=== PATIENT | male | born 1960 | race Caucasian/White ===

== ENCOUNTER 2017-06-06 12:20 | Inpatient (IN) | payer OTHER ==
[~2017-06-06] VITALS: Ht 188 cm; Wt 115.9 kg
--- NOTE | ~2017-06-06 | 2DMMODE ---
[facility] [address] [place] [address] 2 D/M-MODE ECHOCARDIOGRAM Name: LAYLA MARTINS Room #: 215-P ADM IN M.R.#: [id number] Admission: 06/06/17 Attend Phys: José Antonio Hobbs MD Discharge: Date of : 62 Date of Service: 06/07/17 1149 Report #: [id number] THIS REPORT FOR: //name// APPROVED REPORT Study performed: 06/07/2017 10:47:24 EXAM: Comprehensive 2D, Doppler, and color-flow Echocardiogram Patient Location: Bedside Room #: 215 Status: routine BSA: 2.41 HR: 60 bpm BP: 127/85 mmHg Rhythm: NSR Other Information Study Quality: Adequate Technically limited study due to body habitus, unable to position. S/P heart cath. Indications SVT, ST depression, elevated troponin. 2D Dimensions RVDd: 35.51 mm LVEF(%): 49.13 (>50%) IVSd: 13.59 (7-11mm) LVOT Diam: 24.09 (18-24mm) LVDd: 46.95 mm PWd: 13.59 (7-11mm) LVDs: 35.31 (25-40mm) Aortic Root: 42.57 mm Magana's LVEF: 49.13 % Volumes Left Atrial Volume (Systole) Single Plane 4CH: 44.42 mL Single Plane 2CH: 47.72 mL LA ESV Index: 24.00 mL/m2 Aortic Valve AoV Peak Ramon.: 0.84 m/s AO Peak Gr.: 2.79 mmHg LVOT Max P.85 mmHg LVOT Max V: 0.68 m/s BEAU Vmax: 3.71 cm2 Mitral Valve [facility] [address] [place] [address] 2 D/M-MODE ECHOCARDIOGRAM Name: [facility] Room #: 215-[facility] IN .R.#: [id number] Admission: 06/06/17 Attend Phys: José Antonio Hobbs MD Discharge: Date of : 62 Date of Service: 06/07/17 1149 Report #: [id number] E/A Ratio: 0.7 MV Decel. Time: 363.02 ms MV E Max Ramon.: 0.47 m/s MV A Ramon.: 0.64 m/s MV PHT: 105.28 ms IVRT: 110.73 ms Pulmonary Valve PV Peak Ramon.: 0.84 m/s PV Peak Gr.: 2.79 mmHg Pulmonary Vein P Vein S: 0.32 m/s P Vein D: 0.24 m/s P Vein S/D Ratio: 1.33 Left Ventricle The left ventricle is normal size. Mild concentric left ventricular hypertrophy. Left ventricular systolic function is normal. LVEF is 50-55%. Mild diastolic dysfunction is present (impaired relaxation pattern). Right Ventricle The right ventricle is normal size. The right ventricular systolic function is normal. Atria The left atrium size is normal. The right atrium size is normal. Aortic Valve The aortic valve is normal in structure. No aortic regurgitation is present. There is no aortic valvular stenosis. Mitral Valve The mitral valve is normal in structure. There is no mitral valve regurgitation noted. No evidence of mitral valve stenosis. Tricuspid Valve The tricuspid valve is normal in structure. There is no tricuspid valve regurgitation noted. Unable to assess PA pressure. Pulmonic Valve Pulmonic valve is not well visualized. Great Vessels Ascending aorta is not well visualized. IVC is not well [facility] [address] [place] [address] 2 D/M-MODE ECHOCARDIOGRAM Name: [facility] Room #: 215-P [facility] IN M.R.#: [id number] Admission: 06/06/17 Attend Phys: José Antonio Hobbs MD Discharge: Date of : 62 Date of Service: 06/07/17 1149 Report #: [id number] visualized. Pericardium There is no pericardial effusion. <Conclusion> The left ventricle is normal size. Mild concentric left ventricular hypertrophy. Left ventricular systolic function is normal. Mild diastolic dysfunction is present (impaired relaxation pattern). The right ventricle is normal size. The left atrium size is normal. There is no aortic valvular stenosis. There is no mitral valve regurgitation noted. <ELECTRONICALLY SIGNED> By: Rao Torres MD 06/07/17 1149 1149 1149 Rao Torres MD /INF
--- NOTE | ~2017-06-06 | EKG ---
[address] [place] [place] [address] ELECTROCARDIOGRAM REPORT Name: LAYLA MARTINS Room #: 215-P ADM IN M.R.#: [id number] Admission: 06/06/17 Attend Phys: José Antonio Hobbs MD Discharge: Date of : 62 Report #: [id number] THIS REPORT FOR: //name// [facility] Test Date: 2017-06-07 Test Time: 05:37:25 Pat Name: LAYLA MARTINS Department: Room: 215 P Gender: M International Sales Manager: FRANCHESKA : 1960 Requested By: Leola Valero Order Number: [id number] MD: Graham Barry Measurements Intervals Castaner Rate: 67 P: 23 FL: 203 QRS: -18 QRSD: 107 T: 7 QT: 475 QTc: 502 Interpretive Statements Sinus rhythm Borderline prolonged FL interval Borderline left axis deviation Early R-wave progression Prolonged QT interval Baseline wander in lead(s) V4,V6 No previous ECG available for comparison Electronically Signed On 06-07-2017 7:49:44 CDT by Graham Barry [email or web address] <ELECTRONICALLY SIGNED> By: Graham Barry MD, [facility] 06/07/17 0749 0537 0537 Graham Barry MD, [facility] /EPI
--- NOTE | ~2017-06-06 | CATHLAB ---
[facility] [address] [place] [address] INVASIVE PROCEDURE REPORT Name: LAYLA MARTINS Room #: 215-P ADM IN M.R.#: [id number] Admission: 06/06/17 Attend Phys: José Antonio Hobbs MD Discharge: Date of : 62 Date of Service: 06/07/17 0932 Report #: [id number] THIS REPORT FOR: //name// APPROVED REPORT Study performed: 06/07/2017 07:32:59 Patient Details Patient Status: In-Patient Room #: The patient is a 56 year-old male Event Personnel Rao Torres Watch Assembler, Sandra Rebolledo RTR, Cole Alvarez Amber Monitor, Ricardo Santizo fire extinguisher inspector Performed Art Access - R femoral artery* Left Heart Cath w/or w/o Coronaries [id number] [facility] [id number] Initial Mod Sed Same Phys/QHP Gr5y [id number] Hemostasis with Manual pressure Indication Arrhythmia, Dyspnea, Chest pain Risk Factors Hypercholesterolemia, Hypertension Procedure Narrative The patient was brought urgently to the Cardiac Catheterization Laboratory and was prepped and draped in a sterile manner. The Right Groin^ was infiltrated with 1% Lidocaine subcutaneous anesthesia. A PINNACLE 4FR Sheath #[id number] sheath was inserted into the RFA^. Coronary angiography was performed using coronary diagnostic catheters. The right coronary system was accessed and visualized with a JR 4 catheter. The left coronary system was accessed and visualized with a JL 5 catheter. The left ventricle was accessed and visualized with a Pigtail catheter. Left ventricular/Aortic Valve gradient assessed via catheter pullback. Left ventriculogram was performed in BECERRIL projection. Hemostasis was obtained with manual pressure following sheath removal without any complications. The patient tolerated the procedure well and there were no complications associated with the procedure. There was no hematoma. Intraoperative Conscious Sedation Sedation start time: 08:23 Case end Time: 08:43 [facility] [place] [address] INVASIVE PROCEDURE REPORT Name: [facility] Room #: 215-P [facility] IN M.R.#: [id number] Admission: 06/06/17 Attend Phys: José Antonio Hobbs MD Discharge: Date of : 62 Date of Service: 06/07/17 0932 Report #: [id number] Fentanyl 50 mcg Versed 1.5 mg Fluoro Time: 4.36 minutes Dose: DAP 7502.10 cGycm2 784 mGy Contrast Type and Amount: Omnipaque 100 ml Coronary Angiography The patient's coronary anatomy is right dominant. Diagnostic Cath Left Main Large-caliber vessel, with no flow-limiting lesions. LAD Large-caliber vessel, with mild ectatic areas in the proximal segment. Within the mid segment of LAD, there is mild disease, less than 20%. Diagonal 1 Patent vessel, no flow-limiting lesions. Circumflex Moderate to large caliber vessel, with no flow-limiting lesions. Supplies 2 moderate-sized obtuse marginal arteries. OM1 Patent vessel, with no flow-limiting lesions. OM2 Patent vessel, with no flow-limiting lesions. Right Coronary Moderate size caliber vessel, with mild disease in the mid segment, less than 20%. R PDA Small-caliber vessel, with no flow-limiting lesions. RPLV Small-caliber vessel, with no flow-limiting lesions. Left Ventriculography The left ventricle is normal in size with normal contractility. The left ventricular ejection fraction is estimated to be 50-55%. Mitral valve prolapse is identified. Hemodynamics The aortic pressure is 126/79 mmHg with a mean of 101 mmHg. The left ventricular pressure is 121/6 mmHg with a mean of mmHg. The left ventricular end diastolic pressure is 17 mmHg. Conclusion 1. 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 2. Normal LV systolic function. 3. Recommend risk factor management. <ELECTRONICALLY SIGNED> By: Rao Torres MD 06/07/1732 1 1 Rao Torres MD /INF
[2017-06-06 13:30] VITALS: BP 116/82
[2017-06-06 15:16] LABS: CALCIUM 9.5 mg/dL (8.5-10.1); CREATININE 1.3 mg/dL (0.7-1.3); POTASSIUM 4.5 mmol/L (3.5-5.1)
[2017-06-06] MEDS ORDERED: LIPITOR10 MG PO (15:37)
[2017-06-06] MEDS ORDERED: HYDROCHLOROTH12.5 M1 PO (15:38)
[2017-06-06] MEDS ORDERED: LISINOPRIL20 MG PO (15:39)
[2017-06-06] MEDS ORDERED: LOPRESSOR50 PO (15:39)
[2017-06-06] MEDS ORDERED: DROXIA400 MG PO (15:47)
[2017-06-06 16:00] VITALS: BP 119/81
[2017-06-06 20:07] VITALS: BP 146/96
[2017-06-06 23:03] VITALS: BP 132/82
[2017-06-07] VITALS (15 sets, daily range): BP systolic 122–148; BP diastolic 76–96
[2017-06-07 04:22] LABS: ABSOLUTE NEUTROPHILS 6.4 thou/uL (1.4-8.2); BASOPHILS 0.9 % (0.0-2.0); EOSINOPHILS 6.2 % (0.0-3.0); HEMATOCRIT 50.6 % (42.0-52.0); HEMOGLOBIN 17.4 gm/dL (14.0-18.0); LYMPHOCYTES 24.6 % (24.0-44.0); MCH 32.2 pg (26.0-34.0); MCHC 34.4 g/dL (28.0-37.0); MCV 93.7 fL (80.0-100.0); MONOCYTES 6.3 % (1.0-8.0); PLATELET COUNT 606 thou/uL (150-400); RBC 5.41 mil/uL (4.50-6.00); RDW 14.1 % (10.5-14.5); WBC 10.3 thou/uL (4.0-11.0)
[2017-06-07 04:31] LABS: CALCIUM 9.2 mg/dL (8.5-10.1); CREATININE 1.2 mg/dL (0.7-1.3); MAGNESIUM 2.3 mg/dL (1.8-2.4); POTASSIUM 4.3 mmol/L (3.5-5.1)
[2017-06-07] MEDS ORDERED: CARDIZEM CD120 MG PO (13:01)
[2017-06-07] MEDS ORDERED: ADULT LOW DOSE81 MG PO (13:02)
== END 2017-06-07 16:30 | disposition home or self-care (01) | DRG 287 ==
LOC: 2N 12:20
PROVIDERS: Nurse Practitioner
PROC: B2151ZZ Fluoroscopy of Left Heart using Low Osmolar Contrast (ICD-10-PCS; principal; 2017-06-07)
PROC: B246ZZ4 Ultrasonography of Right and Left Heart, Transesophageal (ICD-10-PCS; principal; 2017-06-07)
PROC: 4A023N7 Measurement of Cardiac Sampling and Pressure, Left Heart, Percutaneous Approach (ICD-10-PCS; principal; 2017-06-07)
PROC: B2111ZZ Fluoroscopy of Multiple Coronary Arteries using Low Osmolar Contrast (ICD-10-PCS; principal; 2017-06-07)
DX: I47.1 Supraventricular tachycardia (principal); I10 Essential (primary) hypertension; D75.1 Secondary polycythemia; E78.5 Hyperlipidemia, unspecified; D47.3 Essential (hemorrhagic) thrombocythemia; E66.9 Obesity, unspecified; G47.33 Obstructive sleep apnea (adult) (pediatric); I25.10 Atherosclerotic heart disease of native coronary artery without angina pectoris; Z79.899 Other long term (current) drug therapy; Z68.32 Body mass index [BMI] 32.0-32.9, adult; Z90.49 Acquired absence of other specified parts of digestive tract; Z82.49 Family history of ischemic heart disease and other diseases of the circulatory system
CPT/HCPCS: 10081